=== PATIENT | male | born 1960 | race African-American/Black ===

== ENCOUNTER 2017-11-10 05:42 | Day surgery (SDC) | payer OTHER ==
[~2017-11-10] VITALS: Ht 180.3 cm; Wt 80.0 kg
[~2017-11-10 05:42] MED LIST: FLUT16H NASAL; MOME13HF2 IH; MONT10TA21 PO
[2017-11-10] MEDS ORDERED: LIDOCAINE HCL 2% 30 ML JELLY TP ONE (05:43)
[2017-11-10] MEDS ORDERED: BENZOCAINE 20% 50 MCG/SPRAY 57 GM TP ONE (05:43)
[2017-11-10] MEDS ORDERED: LIDOCAINE HCL 4% 50 ML SOLUTION TP ONE (05:43)
[2017-11-10] MEDS ORDERED: ALBUTEROL SULFATE 2.5 MG/0.5 ML NEB SOLUTION NEB ONE (05:43)
[2017-11-10] MEDS ORDERED: SODIUM CHLORIDE 0.9% 1,000 ML IV ONE ×2 (05:51→06:30)
[2017-11-10] MEDS ORDERED: MIDAZOLAM HCL 2 MG/2 ML VIAL ONE (08:02)
[2017-11-10] MEDS ORDERED: FentaNYL CITRATE-PF 100 MCG/2 ML VIAL ONE (08:03)
[2017-11-10] MEDS ORDERED: MethylPREDNISolone SOD SUCC 125 MG/2 ML VIAL IVP ONE (08:45)
[2017-11-10] MEDS ORDERED: MethylPREDNISolone SOD SUCC 125 MG/2 ML VIAL ONE (08:48)
[2017-11-10] MEDS ORDERED: OXYGEN THERAPY IH SCH (20:00)
== END 2017-11-10 10:15 | disposition home or self-care (01) ==
LOC: SURGERY 05:42
PROVIDERS: ATTEND Internal Medicine Critical Care Medicine
DX: J38.4 Edema of larynx (principal); B37.0 Candidal stomatitis; J45.909 Unspecified asthma, uncomplicated; Z86.11 Personal history of tuberculosis; Z79.899 Other long term (current) drug therapy; Z87.891 Personal history of nicotine dependence; Z98.890 Other specified postprocedural states
CPT/HCPCS: 31623; 31624; 71045; 87015; 87070; 87077; 87186; 87205; 87220; 88108; 88312; J2250; J2930; J3010; J7030

== ENCOUNTER 2019-03-03 05:48 | Day surgery (SDC) | payer OTHER ==
[~2019-03-03] VITALS: Ht 177.8 cm; Wt 78.6 kg
[~2019-03-03 05:48] MED LIST changes: +SODIUM CHLORIDE 0.9% 1,000 ML IV ONE
[2019-03-03] MEDS ORDERED: EPINEPHrine 1:1,000 [1 MG/ML] AMP IM ONE (05:49)
[2019-03-03] MEDS ORDERED: LIDOCAINE 2% 30 ML JELLY TP ONE (05:49)
[2019-03-03] MEDS ORDERED: BENZOCAINE 20% 50 MCG/SPRAY 57 GM TP ONE (05:49)
[2019-03-03] MEDS ORDERED: ALBUTEROL SULFATE 2.5 MG/0.5 ML NEB SOLUTION NEB ONE (05:49)
[2019-03-03] MEDS ORDERED: LIDOCAINE 4% 50 ML SOLUTION TP ONE (05:49)
[2019-03-03] MEDS ORDERED: SODIUM CHLORIDE 0.9% 1,000 ML IV ONE (07:00)
[2019-03-03] MEDS ORDERED: MIDAZOLAM HCL 2 MG/2 ML VIAL ONE (07:58)
[2019-03-03] MEDS ORDERED: FentaNYL CITRATE-PF 100 MCG/2 ML VIAL ONE (07:59)
[2019-03-03] MEDS ORDERED: MethylPREDNISolone SOD SUCC 125 MG/2 ML VIAL IVP ONE (08:30)
[2019-03-03] MEDS ORDERED: MethylPREDNISolone SOD SUCC 125 MG/2 ML VIAL ONE (08:31)
[2019-03-03] MEDS ORDERED: OXYGEN THERAPY IH SCH (20:00)
== END 2019-03-03 09:50 | disposition home or self-care (01) ==
LOC: SURGERY 05:48
PROVIDERS: ATTEND Internal Medicine Critical Care Medicine
DX: J38.4 Edema of larynx (principal); B37.0 Candidal stomatitis; J98.8 Other specified respiratory disorders; J44.9 Chronic obstructive pulmonary disease, unspecified; Z87.891 Personal history of nicotine dependence; Z86.11 Personal history of tuberculosis; Z79.899 Other long term (current) drug therapy; Z98.890 Other specified postprocedural states
CPT/HCPCS: 31623; 31624; 71045; 87015; 87070; 87101; 87205; 87206; 87220; 88108; 88312; J0171; J2250; J2930; J3010; J7030

== ENCOUNTER → 2020-05-22 | Day surgery (SDC) | payer OTHER ==
[2020-05-21 14:00] LABS: COVID AG,FIA SOURCE NASOPHARYNGEAL
[~2020-05-22] VITALS: Ht 180.3 cm; Wt 77.5 kg
[~2020-05-22] MED LIST changes: +ALBUTEROL SULFATE 2.5 MG/0.5 ML NEB SOLUTION NEB ONE; +BENZOCAINE 20% 50 MCG/SPRAY 57 GM TP ONE; +CETI-450 PO; +DOXY-354 PO; -FLUT16H NASAL; +FLUT1AER5 IH; +FentaNYL CITRATE-PF 100 MCG/2 ML VIAL ONE; +LIDOCAINE 2% 30 ML JELLY TP ONE; +LIDOCAINE 4% 50 ML SOLUTION TP ONE; +MIDAZOLAM HCL 2 MG/2 ML VIAL ONE; +MONT-35 PO; -MONT10TA21 PO; +MethylPREDNISolone SOD SUCC 125 MG/2 ML VIAL IVP ONE; +MethylPREDNISolone SOD SUCC 125 MG/2 ML VIAL ONE; +OMEP20 PO; +OXYGEN THERAPY IH SCH; +SODIUM CHLORIDE 0.9% 1,000 ML ONE
== END | disposition home or self-care (01) ==
LOC: SURGERY 05:37
PROVIDERS: ATTEND Internal Medicine Critical Care Medicine
DX: J38.4 Edema of larynx (principal); B37.0 Candidal stomatitis; J44.9 Chronic obstructive pulmonary disease, unspecified; Z98.890 Other specified postprocedural states
CPT/HCPCS: 31623; 31624; 71045; 87015; 87070; 87101; 87205; 87206; 87220; 87426; 88108; 88312; C9803; J2250; J2930; J3010; J7030; J7613; Z7610

== ENCOUNTER 2021-05-28 05:29 | Day surgery (SDC) | payer OTHER ==
[2021-05-26 10:41] LABS: COVID AG,FIA SOURCE NASOPHARYNGEAL
[~2021-05-28] VITALS: Ht 177.8 cm; Wt 76.3 kg
[~2021-05-28 05:29] MED LIST changes: -ALBUTEROL SULFATE 2.5 MG/0.5 ML NEB SOLUTION NEB ONE; -BENZOCAINE 20% 50 MCG/SPRAY 57 GM TP ONE; -FLUT1AER5 IH; -FentaNYL CITRATE-PF 100 MCG/2 ML VIAL ONE; -LIDOCAINE 2% 30 ML JELLY TP ONE; -LIDOCAINE 4% 50 ML SOLUTION TP ONE; -MIDAZOLAM HCL 2 MG/2 ML VIAL ONE; -MONT-35 PO; -MethylPREDNISolone SOD SUCC 125 MG/2 ML VIAL IVP ONE; -MethylPREDNISolone SOD SUCC 125 MG/2 ML VIAL ONE; -OXYGEN THERAPY IH SCH; -SODIUM CHLORIDE 0.9% 1,000 ML IV ONE; -SODIUM CHLORIDE 0.9% 1,000 ML ONE
[2021-05-28] MEDS ORDERED: LIDOCAINE 4% 50 ML SOLUTION TP ONE (05:30)
[2021-05-28] MEDS ORDERED: ALBUTEROL SULFATE 2.5 MG/0.5 ML NEB SOLUTION NEB ONE (05:30)
[2021-05-28] MEDS ORDERED: LIDOCAINE 2% 30 ML JELLY TP ONE (05:30)
[2021-05-28] MEDS ORDERED: BENZOCAINE 20% 50 MCG/SPRAY 57 GM TP ONE (05:30)
[2021-05-28] MEDS ORDERED: SODIUM CHLORIDE 0.9% 1,000 ML ONE (06:16)
[2021-05-28] MEDS ORDERED: SODIUM CHLORIDE 0.9% 1,000 ML IV ONE (06:30)
[2021-05-28] MEDS ORDERED: FentaNYL CITRATE PF 100 MCG/2 ML VIAL ONE (08:07)
[2021-05-28] MEDS ORDERED: MIDAZOLAM HCL 5 MG/ML VIAL ONE (08:07)
[2021-05-28] MEDS ORDERED: MethylPREDNISolone SOD SUCC 125 MG/2 ML VIAL ONE (08:33)
[2021-05-28] MEDS ORDERED: ALBU8HFA IH (08:42)
[2021-05-28] MEDS ORDERED: MOME13HF IH (08:42)
[2021-05-28] MEDS ORDERED: PRED10 PO (08:42)
[2021-05-28] MEDS ORDERED: MethylPREDNISolone SOD SUCC 125 MG/2 ML VIAL IVP ONE (09:15)
[2021-05-28] MEDS ORDERED: OXYGEN THERAPY IH SCH (20:00)
== END 2021-05-28 11:15 | disposition home or self-care (01) ==
LOC: SURGERY 05:29
PROVIDERS: ATTEND Internal Medicine Critical Care Medicine
DX: J38.4 Edema of larynx (principal); B37.0 Candidal stomatitis; J44.9 Chronic obstructive pulmonary disease, unspecified; Z79.899 Other long term (current) drug therapy; Z98.890 Other specified postprocedural states; Z87.891 Personal history of nicotine dependence; Z86.11 Personal history of tuberculosis
CPT/HCPCS: 31623; 31624; 71045; 87015; 87070; 87077; 87101; 87186; 87205; 87206; 87220; 87426; 88108; 88184; 88185; 88312; C9803; J2250; J2930; J3010; J7030; J7613; Z7610

== ENCOUNTER 2022-05-01 06:01 | Day surgery (SDC) | payer OTHER ==
[~2022-05-01] VITALS: Ht 177.8 cm; Wt 75.0 kg
[~2022-05-01 06:01] MED LIST changes: +ALBU8HFA IH; +MOME13HF11 IH; +PRED-729 PO
[2022-05-01] MEDS ORDERED: LIDOCAINE 4% 50 ML SOLUTION TP ONE (06:02)
[2022-05-01] MEDS ORDERED: ALBUTEROL SULFATE 2.5 MG/0.5 ML NEB SOLUTION NEB ONE (06:02)
[2022-05-01] MEDS ORDERED: BENZOCAINE 20% 50 MCG/SPRAY 57 GM TP ONE (06:02)
[2022-05-01] MEDS ORDERED: LIDOCAINE 2% 11 ML JELLY TP ONE (06:02)
[2022-05-01] MEDS ORDERED: SODIUM CHLORIDE 0.9% 1,000 ML IV ONE (06:30)
[2022-05-01] MEDS ORDERED: SODIUM CHLORIDE 0.9% 1,000 ML ONE (06:38)
[2022-05-01 06:46] LABS: COVID AG,FIA SOURCE NASAL SWAB
[2022-05-01] MEDS ORDERED: MIDAZOLAM HCL 5 MG/ML VIAL ONE (07:38)
[2022-05-01] MEDS ORDERED: FentaNYL CITRATE PF 100 MCG/2 ML VIAL ONE (07:38)
[2022-05-01] MEDS ORDERED: MethylPREDNISolone SOD SUCC 125 MG/2 ML VIAL ONE (09:17)
[2022-05-01] MEDS ORDERED: MethylPREDNISolone SOD SUCC 125 MG/2 ML VIAL IVP ONE (09:45)
[2022-05-01] MEDS ORDERED: OXYGEN THERAPY IH SCH (20:00)
== END 2022-05-01 11:10 | disposition home or self-care (01) ==
LOC: SURGERY 06:01
PROVIDERS: ATTEND Internal Medicine Critical Care Medicine
DX: J38.4 Edema of larynx (principal); B37.0 Candidal stomatitis; J44.9 Chronic obstructive pulmonary disease, unspecified; Z86.11 Personal history of tuberculosis; Z79.899 Other long term (current) drug therapy; Z98.890 Other specified postprocedural states
CPT/HCPCS: 31623; 87101; 87220; 87070; 88108; 88305; 87186; 31624; 94640; 71045; 87015; 87426; 87206; J3010; J2930; J2250; Q9967; J7030; C9803; J7613; Z7610

== ENCOUNTER 2023-02-19 06:16 | Day surgery (SDC) | payer OTHER ==
[~2023-02-19] VITALS: Ht 177.8 cm; Wt 75.0 kg
[~2023-02-19 06:16] MED LIST changes: +ALBU18HF12 IH; -ALBU8HFA IH; +MOME13HF12 IH; -MOME13HF2 IH
[2023-02-19] MEDS ORDERED: SODIUM CHLORIDE 0.9% 1,000 ML IV ONE (07:00)
[2023-02-19] MEDS ORDERED: SODIUM CHLORIDE 0.9% 1,000 ML ONE (07:38)
[2023-02-19] MEDS ORDERED: MIDAZOLAM HCL 2 MG/2 ML VIAL ONE (08:15)
[2023-02-19] MEDS ORDERED: FentaNYL CITRATE PF 100 MCG/2 ML VIAL ONE (08:16)
[2023-02-19] MEDS ORDERED: MethylPREDNISolone SOD SUCC 125 MG/2 ML VIAL ONE (09:00)
[2023-02-19 09:05] VITALS: PULSE 47; RESP 13; O2SAT 100
[2023-02-19] MEDS ORDERED: MethylPREDNISolone SOD SUCC 125 MG/2 ML VIAL IVP ONE (09:15)
== END 2023-02-19 11:15 | disposition home or self-care (01) ==
LOC: SURGERY 06:16
PROVIDERS: ATTEND Internal Medicine Critical Care Medicine
DX: R05.3 Chronic cough (principal); R91.1 Solitary pulmonary nodule; J98.09 Other diseases of bronchus, not elsewhere classified; J98.8 Other specified respiratory disorders; J44.9 Chronic obstructive pulmonary disease, unspecified; Z79.899 Other long term (current) drug therapy; Z98.890 Other specified postprocedural states
CPT/HCPCS: 31623; 88112; 87206; 87101; 87220; 87070; 88305; 87186; 31624; 94640; 71045; 87015; J3010; J2250; J2930; J7030

== ENCOUNTER 2024-01-07 05:58 | Day surgery (SDC) | payer OTHER ==
[~2024-01-07 05:58] MED LIST changes: +SODIUM CHLORIDE 0.9% 1,000 ML ONE
[2024-01-07] MEDS ORDERED: ALBUTEROL SULFATE 2.5 MG/0.5 ML NEB SOLUTION NEB ONE (05:59)
[2024-01-07] MEDS ORDERED: LIDOCAINE 2% 11 ML JELLY TP ONE (05:59)
[2024-01-07] MEDS ORDERED: LIDOCAINE 4% 50 ML SOLUTION TP ONE (05:59)
[2024-01-07] MEDS ORDERED: BENZOCAINE 20% 50 MCG/SPRAY 57 GM TP ONE (05:59)
[2024-01-07] MEDS ORDERED: FentaNYL CITRATE PF 100 MCG/2 ML VIAL ONE (07:22)
[2024-01-07] MEDS ORDERED: MIDAZOLAM HCL 2 MG/2 ML VIAL ONE (07:22)
[2024-01-07] MEDS: SODIUM CHLORIDE 0.9% 1,000 ML IV ONE (08:15)
[2024-01-07 09:20] VITALS: PULSE 66; RESP 15; O2SAT 100
[2024-01-07] MEDS ORDERED: MethylPREDNISolone SOD SUCC 125 MG/2 ML VIAL ONE (09:51)
[2024-01-07] MEDS: MethylPREDNISolone SOD SUCC 125 MG/2 ML VIAL IVP ONE (09:54)
== END 2024-01-07 12:55 | disposition home or self-care (01) ==
LOC: SURGERY 05:58
PROVIDERS: ATTEND Internal Medicine Critical Care Medicine
DX: R05.3 Chronic cough (principal); R06.2 Wheezing; J84.10 Pulmonary fibrosis, unspecified; J98.8 Other specified respiratory disorders; J98.09 Other diseases of bronchus, not elsewhere classified; J38.4 Edema of larynx; B37.0 Candidal stomatitis; J44.9 Chronic obstructive pulmonary disease, unspecified; M47.814 Spondylosis without myelopathy or radiculopathy, thoracic region; Z85.21 Personal history of malignant neoplasm of larynx; Z98.890 Other specified postprocedural states
CPT/HCPCS: 31623; 87206; 87101; 87220; 87070; 88108; 87186; 31624; 94640; 71045; 87015; J3010; J2250; J2919; Q9967; J7030; J7613; Z7610